=== PATIENT | male | born 1965 | race Caucasian/White ===

== ENCOUNTER → 2024-09-02 08:01 | Outpatient (REF) | payer OTHER, SELFPAY | LOC: HWRCS 08:01 | PROVIDERS: ATTENDING PHYSICIAN Physician Assistant Medical | DX: I35.0 Nonrheumatic aortic (valve) stenosis (principal); Z91.89 Other specified personal risk factors, not elsewhere classified | CPT/HCPCS: 93306 ==

== ENCOUNTER → 2024-09-02 09:04 | Outpatient (REF) | payer SELFPAY | LOC: HWRAD 09:04 | PROVIDERS: ATTENDING PHYSICIAN Physician Assistant Medical | DX: E78.2 Mixed hyperlipidemia (principal); R09.89 Other specified symptoms and signs involving the circulatory and respiratory systems | CPT/HCPCS: 75571 ==